=== PATIENT | male | born 1985 | race Caucasian/White ===

== ENCOUNTER 2021-07-21 18:31 | Inpatient (IN) | payer MEDICAID, SELFPAY ==
[2021-07-21 18:36] VITALS: BP 147/98; PULSE 74; RESP 18; TEMP 35.7; O2SAT 99; BMI 20.7
--- NOTE | 2021-07-21 18:38 | CTR_ITS ---
PROCEDURE INFORMATION: Exam: CT Abdomen And Pelvis With Contrast Exam date and time: 07/21/2021 6:38 PM Age: 36 years old Clinical indication: Abdominal pain; Generalized; Patient HX: Abd pain; Limited HX due to PT condition; Additional info: Severe abdominal pain TECHNIQUE: Imaging protocol: Computed tomography of the abdomen and pelvis with contrast. Radiation optimization: All CT scans at this facility use at least one of these dose optimization techniques: automated exposure control; mA and/or kV adjustment per patient size (includes targeted exams where dose is matched to clinical indication); or iterative reconstruction. Contrast material: OMNIPAQUE 300; Contrast volume: 95 ml; Contrast route: INTRAVENOUS (IV); COMPARISON: No relevant prior studies available. RADIATION DOSE METRICS: Total DLP (mGy-cm): 773.54 FINDINGS: Liver: Unremarkable. No mass. Gallbladder and bile ducts: No calcified stones. No ductal dilation. Pancreas: Unremarkable. No ductal dilation. Spleen: Unremarkable. No splenomegaly. Adrenal glands: Unremarkable. No mass. Kidneys and ureters: Unremarkable. No hydronephrosis. No solid mass. Stomach and bowel: Stomach is distended with fluid. Multiple dilated small bowel loops with air-fluid levels. The distal small bowel has an empty, decompressed appearance. Findings are consistent with small bowel obstruction. The point of obstruction is located in the right lower abdomen, series 2, images 47 through 52. No ischemic change or perforation of the bowel noted. Appendix: No evidence of appendicitis. Intraperitoneal space: No free air. No significant fluid collection. Vasculature: No abdominal aortic aneurysm. Lymph nodes: No pathologically enlarged lymph nodes. Urinary bladder: Unremarkable as visualized. Reproductive: Unremarkable as visualized. Bones/joints: Unremarkable. No acute osseous abnormality. Soft tissues: Unremarkable. CT/CT abdomen pelvis w con* [id number] IMPRESSION: 1. Multiple dilated small bowel loops with air-fluid levels. The distal small bowel has an empty, decompressed appearance. Findings are consistent with small bowel obstruction. No ischemic change or perforation noted. 2. No acute abnormality demonstrated of the solid organs.
--- NOTE | 2021-07-21 18:39 | ED_ITS ---
Documented by User: JANE Maurer 07/21/21 21:09 HPI - Abdominal Pain General: Chief Complaint: Abdominal Pain Stated Complaint: ABDOMINAL PAIN Time Seen by Provider: 07/21/21 18:33 Source: patient and EMS Mode of arrival: EMS Limitations: no limitations History of Present Illness: Patient is a 36-year-old male who presents to ED today via EMS for complaints of severe abdominal pains that began approximately 6 to 7 hours ago. Patient states he has felt incredibly nauseous but has not had any episodes of emesis. He states he has had mild amounts of diarrhea over the past 48 hours. No fevers. PMH is significant only for type 1 diabetes. Patient states he has been taking his insulin as prescribed. 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 MD elicited complaint: abdominal pain Onset (ago): hour(s) Pain Consistency: constant Location: Diffuse Severity: severe Pain scale (0-10): 10 Quality: sharp Radiation: none Migration to: no migration Exacerbating factors: nothing Relieving factors: nothing Associated Symptoms: Reports diarrhea and nausea; Denies chills, dysuria, fever(s), hematochezia, hematuria, hematemesis, melena, syncope and vomiting Review of Systems Const: Denies: fever(s), chills, body aches, fatigue or malaise Eyes: Denies: change in vision or blurry vision Card: Denies: chest pain, palpitations, lightheadedness, syncope or pre- syncope Resp: Denies: dyspnea GI: Reports: abdominal pain, nausea and diarrhea; Denies: vomiting, hematemesis, pain on defecation, hematochezia or melena : Denies: flank pain, dysuria, hematuria, genital pain, testicular pain, testicular mass or scrotal swelling Musc: Denies: neck pain, back pain, extremity pain or joint pain Skin/Breast: Denies: rash Neuro: Denies: headache(s), numbness in extremities, weakness in extremities, sensory changes or dizziness PFS ED PFSH: Medical History History of gastroschisis Smoking addiction Uncontrolled type I diabetes mellitus Surgical History H/O abdominal surgery 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 Family History Other No significant family history Social History Smoking and tobacco status: current some day smoker cigarettes Packs smoked per day: 1 Alcohol intake: never Lives independently: Yes Household members: significant other Marital status: Single Marital status details: Engaged Physical Exam Const: COMMON NORMALS: patient oriented x3, no limitations and alert GENERAL APPEARANCE: cooperative, in distress (seconary to pain) and anxious ORIENTATION/CONSCIOUSNESS: Yes awake, Yes oriented to person, Yes oriented to place and Yes oriented to time HENMT: COMMON NORMALS: normocephalic and atraumatic HEAD & SCALP: normocephalic and atraumatic Chest: COMMONS NORMALS: normal inspection of the chest and normal palpation of entire chest wall Resp: COMMON NORMALS: normal respiratory effort and clear to auscultation bilaterally AUSCULTATION: clear to auscultation bilaterally Cardio: COMMON NORMALS: regular rate and regular rhythm RATE: regular rate RHYTHM: regular rhythm GI: COMMON NORMALS: No hepatosplenomegaly present and no masses INSPECTION: Yes normal to inspection, No abdominal wall ecchymosis and No Abdominal wall edema AUSCULTATION: Yes Hypoactive bowel sounds present PALPATION: Yes Tenderness to palpation present (GI) (diffuse-rigid abdomen), Yes Guarding due to palpation present (GI), Yes Rigid due to palpation and Yes No hepatosplenomegaly present : COMMON NORMALS: Yes no CVA tenderness BLADDER/KIDNEY EXAM: Yes no CVA tenderness Back/Pelvis: COMMON NORMALS: no CVA tenderness Extremity: COMMON NORMALS: normal to inspection GENERAL: Yes normal exam except as noted Neuro: KYM COMA SCALE: document GCS findings [place] coma scale eye opening: Spontaneous Kym coma scale verbal response: Orientated [place] coma scale motor response: Obey commands Kym coma scale total score: 15 COMMON NORMALS: patient oriented x3, moves all extremities, no focal motor deficits and no sensory deficits noted SENSORIUM/ORIENTATION: Yes alert, Yes oriented to person, Yes oriented to place and Yes oriented to time Skin: COMMON NORMALS: no rashes or lesions noted GENERAL SKIN EXAM: no rashes or lesions noted Course Consultations: Consultation #1: Dr. Martinez-recommends NG tube, repeat labs in the morning, IV fluid hydration with NS, and he will graciously consult on patient Consultation #2: Dr. Rinaldi-accepts admission Vital Signs: Vital signs: Vital Signs Temperature 98.6 F 07/23/21 07:35 Pulse Rate 72 07/23/21 07:35 Respiratory Rate 16 07/23/21 07:35 Blood Pressure 109/68 07/23/21 07:35 Pulse Oximetry 96 07/23/21 07:35 MDM - Abdominal Pain Medical Decision Making Patient is a 36-year-old male here with small bowel obstruction without perforation His vital signs are normal. His white count is 14.9. He is a normal lactate. Patient is an uncontrolled type I diabetic. Patient will be admitted to hospitalist Dr. Rinaldi with Dr. Martinez to consult. Lab Data : 07/23/21 04:32 07/23/21 04:32 Labs/Radiology: Radiology Impressions Abdomen/Pelvis CT 07/21/21 18:38 IMPRESSION: 1. Multiple dilated small bowel loops with air-fluid levels. The distal small bowel has an empty, decompressed appearance. Findings are consistent with small bowel obstruction. No ischemic change or perforation noted. 2. No acute abnormality demonstrated of the solid organs. Chest X-Ray 07/21/21 21:04 IMPRESSION: 1. There is an enteric tube present with distal tip in the stomach, just beyond the gastroesophageal junction. 2. No pulmonary infiltrates demonstrated. Laboratory Results WBC 14.9 10^3/uL (4.0-10.0) H 07/21/21 17:40 RBC 5.62 10^6/uL (4.1-5.3) H 07/21/21 17:40 Hgb 16.6 g/dL (11.7-16.6) 07/21/21 17:40 Hct 49.9 % (42.0-52.0) 07/21/21 17:40 MCV 88.8 fl (80-94) 07/21/21 17:40 MCH 29.5 pg (28.0-34.0) 07/21/21 17:40 MCHC 33.3 g/dL (30.0-36.0) 07/21/21 17:40 RDW 12.6 % (12.1-15.1) 07/21/21 17:40 Plt Count 574 10^3/cmm (130-400) H 07/21/21 17:40 MPV 9.0 fL (7.4-10.4) 07/21/21 17:40 Neut % (Auto) 70.9 % 07/21/21 17:40 Lymph % (Auto) 20.1 % 07/21/21 17:40 [place] % (Auto) 5.2 % 07/21/21 17:40 Eos % (Auto) 2.7 % 07/21/21 17:40 Baso % (Auto) 0.7 % 07/21/21 17:40 Neut # (Auto) 10.55 10^3/uL (1.8-7.7) H 07/21/21 17:40 Lymph # (Auto) 3.0 10^3/uL (0.8-4.8) 07/21/21 17:40 [place] # (Auto) 0.8 10^3/uL (0.2-0.9) 07/21/21 17:40 Eos # (Auto) 0.4 10^3/uL (0.0-0.8) 07/21/21 17:40 Baso # (Auto) 0.1 10^3/uL (0.0-0.1) 07/21/21 17:40 Nucleated RBC % (auto) 0 % 07/21/21 17:40 Nucleated RBCs # 0.0 /100WBC 07/21/21 17:40 Sodium 138 mmol/L (136-145) 07/21/21 17:40 Potassium 3.8 mmol/L (3.5-5.1) 07/21/21 17:40 Chloride 90 mmol/L (98-107) L 07/21/21 17:40 Carbon Dioxide 27 mmol/L (22-29) 07/21/21 17:40 Anion Gap 24.8 (5-19) H 07/21/21 17:40 BUN 21 mg/dL (6-20) H 07/21/21 17:40 Creatinine 1.3 mg/dL (0.7-1.2) H 07/21/21 17:40 GFR Calculation 62.8 mL/min (90-130) L 07/21/21 17:40 Glucose 213 mg/dL (65-115) H 07/21/21 17:40 Estimat Average Glucose 192 07/21/21 17:40 Hemoglobin A1c 8.3 % (4.0-6.0) H 07/21/21 17:40 Calculated Osmolality 295 mOsm/kg (285-295) 07/21/21 17:40 Lactic Acid 1.7 mmol/L (0.5-2.2) 07/21/21 19:10 Calcium 12.8 mg/dL (8.5-10.5) H 07/21/21 17:40 Total Bilirubin 0.4 mg/dL (0.15-1.2) 07/21/21 17:40 AST 18 U/L (0-40) 07/21/21 17:40 ALT 21 U/L (0-41) 07/21/21 17:40 Alkaline Phosphatase 157 IU/L (40-130) H 07/21/21 17:40 Total Protein 10.2 g/dL (6.6-8.7) H 07/21/21 17:40 Albumin 5.8 g/dL (3.5-5.2) H 07/21/21 17:40 Globulin 4.4 g/dL (1.3-4.6) 07/21/21 17:40 Lipase 13 U/L (13-60) 07/21/21 17:40 Serum Ketones Negative (Negative) 07/21/21 19:10 Discharge Plan Discharge Patient Disposition: Admitted As Inpatient Admit Provider: Ricardo Rinaldi Clinical Impression: SBO (small bowel obstruction), Uncontrolled type I diabetes mellitus Condition: Stable Coding Level of Care Code ED Assistant Program Director for [facility] Fwd Exam Comprehensive Documented by User: Chago Clarke MD 07/23/21 09:10 HPI - Abdominal Pain General: Chief Complaint: Abdominal Pain Stated Complaint: ABDOMINAL PAIN Time Seen by Provider: 07/21/21 18:33 PFSH ED PFSH: Medical History History of gastroschisis Smoking addiction Uncontrolled type I diabetes mellitus Surgical History H/O abdominal surgery 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 Family History Other No significant family history Social History Smoking and tobacco status: current some day smoker cigarettes Packs smoked per day: 1 Alcohol intake: never Lives independently: Yes Household members: significant other Marital status: Single Marital status details: Engaged Physical Exam Neuro: KYM COMA SCALE: document GCS findings [place] coma scale total score: 15 Course Vital Signs: Vital signs: Vital Signs Temperature 98.6 F 07/23/21 07:35 Pulse Rate 72 07/23/21 07:35 Respiratory Rate 16 07/23/21 07:35 Blood Pressure 109/68 07/23/21 07:35 Pulse Oximetry 96 07/23/21 07:35 MDM - Abdominal Pain Medical Decision Making Patient is a 36-year-old male here with small bowel obstruction without perf oration His vital signs are normal. His white count is 14.9. He is a normal lactate. Patient is an uncontrolled type I diabetic. Patient will be admitted to hospitalist Dr. Rinaldi with Dr. Martinez to consult. I discussed this case with JANE Maurer. I reviewed documentation, labs, imaging. Patient to be admitted for bowel obstruction. Chago Clarke MD Emergency Medicine Lab Data : 07/23/21 04:32 07/23/21 04:32 Labs/Radiology: Radiology Impressions Abdomen/Pelvis CT 07/21/21 18:38 IMPRESSION: 1. Multiple dilated small bowel loops with air-fluid levels. The distal small bowel has an empty, decompressed appearance. Findings are consistent with small bowel obstruction. No ischemic change or perforation noted. 2. No acute abnormality demonstrated of the solid organs. Chest X-Ray 07/21/21 21:04 IMPRESSION: 1. There is an enteric tube present with distal tip in the stomach, just beyond the gastroesophageal junction. 2. No pulmonary infiltrates demonstrated. Laboratory Results WBC 14.9 10^3/uL (4.0-10.0) H 07/21/21 17:40 RBC 5.62 10^6/uL (4.1-5.3) H 07/21/21 17:40 Hgb 16.6 g/dL (11.7-16.6) 07/21/21 17:40 Hct 49.9 % (42.0-52.0) 07/21/21 17:40 MCV 88.8 fl (80-94) 07/21/21 17:40 MCH 29.5 pg (28.0-34.0) 07/21/21 17:40 MCHC 33.3 g/dL (30.0-36.0) 07/21/21 17:40 RDW 12.6 % (12.1-15.1) 07/21/21 17:40 Plt Count 574 10^3/cmm (130-400) H 07/21/21 17:40 MPV 9.0 fL (7.4-10.4) 07/21/21 17:40 Neut % (Auto) 70.9 % 07/21/21 17:40 Lymph % (Auto) 20.1 % 07/21/21 17:40 [place] % (Auto) 5.2 % 07/21/21 17:40 Eos % (Auto) 2.7 % 07/21/21 17:40 Baso % (Auto) 0.7 % 07/21/21 17:40 Neut # (Auto) 10.55 10^3/uL (1.8-7.7) H 07/21/21 17:40 Lymph # (Auto) 3.0 10^3/uL (0.8-4.8) 07/21/21 17:40 [place] # (Auto) 0.8 10^3/uL (0.2-0.9) 07/21/21 17:40 Eos # (Auto) 0.4 10^3/uL (0.0-0.8) 07/21/21 17:40 Baso # (Auto) 0.1 10^3/uL (0.0-0.1) 07/21/21 17:40 Nucleated RBC % (auto) 0 % 03/16/22 17:40 Nucleated RBCs # 0.0 /100WBC 07/21/21 17:40 Sodium 138 mmol/L (136-145) 07/21/21 17:40 Potassium 3.8 mmol/L (3.5-5.1) 07/21/21 17:40 Chloride 90 mmol/L (98-107) L 07/21/21 17:40 Carbon Dioxide 27 mmol/L (22-29) 07/21/21 17:40 Anion Gap 24.8 (5-19) H 07/21/21 17:40 BUN 21 mg/dL (6-20) H 07/21/21 17:40 Creatinine 1.3 mg/dL (0.7-1.2) H 07/21/21 17:40 GFR Calculation 62.8 mL/min (90-130) L 07/21/21 17:40 Glucose 213 mg/dL (65-115) H 07/21/21 17:40 Estimat Average Glucose 192 07/21/21 17:40 Hemoglobin A1c 8.3 % (4.0-6.0) H 07/21/21 17:40 Calculated Osmolality 295 mOsm/kg (285-295) 07/21/21 17:40 Lactic Acid 1.7 mmol/L (0.5-2.2) 07/21/21 19:10 Calcium 12.8 mg/dL (8.5-10.5) H 07/21/21 17:40 Total Bilirubin 0.4 mg/dL (0.15-1.2) 07/21/21 17:40 AST 18 U/L (0-40) 07/21/21 17:40 ALT 21 U/L (0-41) 07/21/21 17:40 Alkaline Phosphatase 157 IU/L (40-130) H 07/21/21 17:40 Total Protein 10.2 g/dL (6.6-8.7) H 07/21/21 17:40 Albumin 5.8 g/dL (3.5-5.2) H 07/21/21 17:40 Globulin 4.4 g/dL (1.3-4.6) 07/21/21 17:40 Lipase 13 U/L (13-60) 07/21/21 17:40 Serum Ketones Negative (Negative) 07/21/21 19:10 Discharge Plan Discharge Patient Disposition: Admitted As Inpatient Admit Provider: Ricardo Rinaldi Clinical Impression: SBO (small bowel obstruction), Uncontrolled type I diabetes mellitus Condition: Stable Coding Level of Care Code ED Assistant Program Director for [facility] Fwd Exam Comprehensive
[2021-07-21] MEDS: sodium chloride 0.9% 1,000 ML 999 ML IV (19:00)
[2021-07-21 19:11] LABS: Basophils # 0.1 10^3/uL (0.0-0.1); Basophils % 0.7 %; Eosinophils # 0.4 10^3/uL (0.0-0.8); Eosinophils % 2.7 %; Hematocrit 49.9 % (42.0-52.0); Hemoglobin 16.6 g/dL (11.7-16.6); Lymphocytes % 20.1 %; Mean Corpuscular HGB Conc 33.3 g/dL (30.0-36.0); Mean Corpuscular Hemoglobin 29.5 pg (28.0-34.0); Mean Corpuscular Volume 88.8 fl (80-94); Monocytes # 0.8 10^3/uL (0.2-0.9); Monocytes % 5.2 %; Neutrophils # 10.55 10^3/uL (1.8-7.7); Neutrophils % 70.9 %; Nucleated Red Blood Cells % 0 %; Platelet Count 574 10^3/cmm (130-400); Red Blood Count 5.62 10^6/uL (4.1-5.3); Red Cell Distribution Width 12.6 % (12.1-15.1); White Blood Count 14.9 10^3/uL (4.0-10.0)
[2021-07-21] MEDS: iohexol 300 mg/mL 100 mL Btl IV (19:20)
[2021-07-21 19:40] LABS: Lactic Sepsis W/Reflex 1.7 mmol/L (0.5-2.2)
[2021-07-21 19:41] LABS: Alanine Aminotransferase 21 U/L (0-41); Albumin Level 5.8 g/dL (3.5-5.2); Alkaline Phosphatase 157 IU/L (40-130); Anion Gap 24.8 (5-19); Aspartate Amino Transferase 18 U/L (0-40); Blood Urea Nitrogen 21 mg/dL (6-20); Calcium 12.8 mg/dL (8.5-10.5); Carbon Dioxide 27 mmol/L (22-29); Chloride 90 mmol/L (98-107); Globulin 4.4 g/dL (1.3-4.6); Glomerular Filtration Rate 62.8 mL/min (90-130); Glucose 213 mg/dL (65-115); Lipase 13 U/L (13-60); Osmolality Calculated 295 mOsm/kg (285-295); Potassium 3.8 mmol/L (3.5-5.1); Sodium 138 mmol/L (136-145); Total Bilirubin 0.4 mg/dL (0.15-1.2); Total Protein 10.2 g/dL (6.6-8.7)
[2021-07-21 20:13] LABS: Ketone (Acetest) Serum Negative (Negative)
[2021-07-21] MEDS: insulin regular-human 100 units/1 mL 5 UNIT IVP (20:14)
[2021-07-21 20:45] VITALS: RESP 16
[2021-07-21] MEDS: morphine 4 mg/mL SDV 1 mL IVP (20:45)
--- NOTE | 2021-07-21 21:04 | XRR_ITS ---
PROCEDURE INFORMATION: Exam: XR Chest Exam date and time: 07/21/2021 9:04 PM Age: 36 years old Clinical indication: Device placement; Ng tube; Additional info: Ng placement TECHNIQUE: Imaging protocol: XR of the chest. Views: 1 view. COMPARISON: CT abdomen pelvis w con* [id number] 07/21/2021 7:21 PM FINDINGS: Tubes, catheters and devices: There is an enteric tube present with distal tip in the stomach, just beyond the gastroesophageal junction. Lungs: The lungs appear clear. No infiltrates. Pleural spaces: No pleural effusion. No pneumothorax. Heart/Mediastinum: No cardiomegaly. Bones/joints: Unremarkable. Gastrointestinal tract: Dilated small bowel in the upper abdomen, consistent with small bowel obstruction. XR/XR chest 1V portable [id number] IMPRESSION: 1. There is an enteric tube present with distal tip in the stomach, just beyond the gastroesophageal junction. 2. No pulmonary infiltrates demonstrated.
[2021-07-21 22:15] VITALS: RESP 15; O2SAT 98
[2021-07-21] MEDS: HYDROmorphone 1 mg/mL INJ 1 mL 0.5 MG IVP (22:15)
[2021-07-21 22:27] VITALS: BP 144/103; PULSE 94; RESP 18; TEMP 37.2; O2SAT 100
--- NOTE | 2021-07-21 22:47 | PM.HP ---
Providers/Chief Complaint Admitting Physician: Ricardo Rinaldi Primary Care Provider: MANISHA Park Chief Complaint: ABDOMINAL PAIN History of Present Illness 36-year-old, with history of gastroschisis and repair in infancy, with recurrent episodes of constipation, over the last several months with very poor oral intake, sometimes no bowel movement for about a week, recurrent nausea, recently his fianc?e is also describing episodes of orthostasis, getting lightheaded, nauseated while standing up. He does not usually follow with a doctor. He does have diabetes type 1 for which he takes only sliding scale regular insulin. She states that he buy it [id number] from [employer]. Today he has been expensing recurrent episodes of vomiting, with abdominal pain, tiny amounts of liquid stool. In ER he is noted afebrile, but initial troponin 96.2, subsequent 99 Fahrenheit. Leukocytosis 14.9., Cytosis 174. AMOS or CKD with creatinine 1.3, BUN 21. Bicarb 27, anion gap 24.8. Lactic acid 1.7. Glucose 213. Serum ketones negative. Lipase 13. T bili 0.4, AST 18, ALT 21, alk phos 157. Calcium 12.8. CT abdomen pelvis with noted multiple dilated small bowel loops with air-fluid levels. Distal small bowel is an empty decompressed appearance. Findings consistent with small bowel obstruction. No ischemic change or perforation noted on the contrast study. NG tube placed and surgery consultation was sought in ER. Review of Systems Const: Reports: change in appetite (Poor PO intake) and other (orthostasis); Denies: fever(s), chills, body aches or malaise Eyes: Denies: change in vision or eye redness ENMT: Denies: throat pain, oral sores or ear or mastoid pain Card: Denies: chest pain, edema, pre-syncope or dyspnea on exertion Resp: Denies: dyspnea, productive cough, change in phlegm color or hemoptysis GI: Reports: abdominal pain, nausea, vomiting and constipation; Denies: hematochezia or melena : Denies: flank pain, difficulty urinating, urinary frequency or hematuria Musc: Denies: back pain, joint swelling or joint redness Skin/Breast: Denies: rash, sores or new lesions Neuro: Denies: headache(s), numbness in extremities, weakness in extremities, dizziness, confusion or seizure-like activity Endo: Denies: polyuria or polydipsia Jerald/Lymph: Denies: easy bleeding or purpura All/Imm: Denies: urticaria, throat swelling or tongue swelling Medications/Allergies Home Medications Medication Instructions Recorded Confirmed Last Taken Type insulin regular human 100 unit/mL See Rx Instructions .ROUTE .COMPLEX 07/21/21 07/21/21 Unknown History injection solution (Novolin R Regular U-100 Insulin) Allergies Allergy/AdvReac Type Severity Reaction Status Date / Time cephalexin AdvReac Intermediate ADR-Vomitin Unverified 07/21/21 22:58 g PFSH Acute PFSH: Medical History (Updated 07/21/21 @ 23:35 by Ricardo Rinaldi MD) History of gastroschisis Smoking addiction Uncontrolled type I diabetes mellitus Surgical History (Updated 07/21/21 @ 22:56 by Ricardo Rinaldi MD) H/O abdominal surgery 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 Family History Other No significant family history Social History (Updated 07/21/21 @ 22:59 by Ricardo Rinaldi MD) Smoking and tobacco status: current some day smoker cigarettes Packs smoked per day: 1 Alcohol intake: never Substance/Drug Use: current Substance/Drug use type: Marijuana Lives independently: Yes Household members: significant other Marital status: Single Marital status details: Engaged Vitals/I&O/Wt Last Vital Signs Temp 99.0 F 07/21/21 22:27 Pulse 94 07/21/21 22:27 Resp 18 07/21/21 22:27 BP 144/103 07/21/21 22:27 Pulse Ox 100 07/21/21 22:27 Weight last 48 hrs Weight 63.503 kg Physical Exam Narrative: Fianc?e at bedside Const: GENERAL APPEARANCE: not comfortable (abdominal pain) HENMT: COMMON NORMALS: oropharynx normal Neck/C-Spine: COMMON NORMALS: no JVD Resp: COMMON NORMALS: normal respiratory effort and clear to auscultation bilaterally AUSCULTATION: clear to auscultation bilaterally Cardio: COMMON NORMALS: no JVD, regular rhythm, S1 normal heart sound present, S2 normal heart sound present and No murmurs present (Cardio) RHYTHM: regular rhythm HEART SOUNDS: S1 normal heart sound present and S2 normal heart sound present GI: COMMON NORMALS: Soft to palpation AUSCULTATION: Yes Hypoactive bowel sounds present PALPATION: Yes Soft to palpation and Yes Tenderness to palpation present (GI) Extremity: COMMON NORMALS: no joint enlargement and no pedal edema Neuro: COMMON NORMALS: patient oriented x3 and moves all extremities Skin: COMMON NORMALS: no rashes or lesions noted GENERAL SKIN EXAM: no rashes or lesions noted Data : 07/21/21 17:40 07/21/21 17:40 A&P Assessment and plan (1) SBO (small bowel obstruction): Bowel rest. NGT decompression. Pain medication. Surgical consultation. Also reassess hypercalcemia. At this time no sign of perforation. No sign of bowel ischemia on imaging, lactic acid 1.7. PPI. Given leukocytosis, sweats, low-grade temp 99.2 Fahrenheit, possible minimal diarrhea, with abdominal pain, will empirically cover with antibiotics for now discussed with him and his fianc?e regarding ciprofloxacin and Flagyl at this time. Requested stool studies with culture, ova and parasite, C. difficile. Status: Acute (2) Uncontrolled type I diabetes mellitus: Does not go to doctors. Uses sliding scale regular insulin every 6 hours. His fianc?e states that he does check blood sugars regularly. Serum ketones negative. Will check UA for urine ketones. Does have anion gap acidosis. Glucose checks. Check A1c. We will give Lantus and short acting sliding scale while in hospital. Status: Acute (3) Hypercalcemia: Calcium 12.8. Unclear if this is contributing to symptoms and recurrent constipation. Patient may have symptomatic hypercalcemia. Alternatively could be secondary to dehydration with poor oral intake recently. Recheck BMP after he has received fluid resuscitation in ER. Continue IV hydration NS 150 mL/h. Check ionized calcium. Depending on results on repeat labs and ionized calcium, may need additional assessment and treatment if indeed symptomatic hypercalcemia. Status: Acute (4) Smoking addiction: Discussed with him regarding smoking including nicotine replacement, he declines currently patches or lozenges, discussed with him to let us know in case he is feeling cravings. Please continue reinforce smoking cessation. Status: Acute (5) AMOS (acute kidney injury): AMOS versus CKD, unknown baseline renal function. Creatinine is 1.3. BUN 21. Dehydrated, with combined acid-base disorder with metabolic alkalosis, also gap acidosis. IV hydration as above after fluid challenge. Reassess renal function. No history of NSAID use. No obstructive uropathy on CT. Status: Acute Plan Noted anion gap metabolic acidosis, anion gap 24.8, bicarb 27, with concomitant dehydration. IV hydration as above. Check urine for ketones. Lactic acid is 1.7. Appears to have acute kidney injury, possibly contributing. Follow-up chemistry Attestations Medical Necessity Statement*: Admission of 40 minutes is anticipated for assessment management of small bowel obstruction, AMOS, hypercalcemia. Coding Level of Care Code Acute Land Surveyor Assistant for [facility] Fwd Exam Comprehensive Diagnoses SBO (small bowel obstruction) K56.609 Uncontrolled type I diabetes mellitus E10.65 Hypercalcemia E83.52 Smoking addiction F17.200 AMOS (acute kidney injury) N17.9
[2021-07-21 23:19] VITALS: BP 143/103; PULSE 79; RESP 14; TEMP 37.3; O2SAT 98
[2021-07-21 23:42] LABS: Glucose Point of Care 261 mg/dL (70-110)
[2021-07-21 23:46] LABS: Ionized Calcium 1.3 mmol/L (1.1-1.4)
[2021-07-22] VITALS (7 sets, daily range): BP systolic 113–142; BP diastolic 65–84; PULSE 76–92; RESP 16–18; TEMP 36.4–37.1; O2SAT 94–97; BMI 18.8
[2021-07-22] MEDS: metroNIDAZOLE IV 500 MG/100 ML PREMIX 100 MG IV ×3 (00:05→17:19)
[2021-07-22] MEDS: insulin glargine 100 units/1 mL 10 UNIT SUBCUT ×2 (00:13→21:25)
[2021-07-22 00:19] LABS: Estmated Average Glucose 192; Hemoglobin A1C 8.3 % (4.0-6.0)
[2021-07-22 00:24] LABS: Anion Gap 25.6 (5-19); Blood Urea Nitrogen 24 mg/dL (6-20); Calcium 11.6 mg/dL (8.5-10.5); Carbon Dioxide 23 mmol/L (22-29); Chloride 90 mmol/L (98-107); Glomerular Filtration Rate 43.2 mL/min (90-130); Glucose 299 mg/dL (65-115); Osmolality Calculated 293 mOsm/kg (285-295); Potassium 4.6 mmol/L (3.5-5.1); Sodium 134 mmol/L (136-145)
[2021-07-22] MEDS: HYDROmorphone 1 mg/mL INJ 1 mL IVP (00:26)
[2021-07-22] MEDS: pantoprazole 40 mg SDV IVP (00:26)
[2021-07-22] MEDS: ciprofloxacin 400 MG/200 ML PREMIX 200 MG IV ×2 (01:15→13:48)
[2021-07-22 02:45] LABS: Glucose Point of Care 315 mg/dL (70-110)
[2021-07-22] MEDS: insulin lispro 100 unit/1 mL SUBCUT ×4 (05:02→18:35)
[2021-07-22 05:03] LABS: Glucose Point of Care 384 mg/dL (70-110)
[2021-07-22 05:09] LABS: Basophils # 0.1 10^3/uL (0.0-0.1); Basophils % 0.7 %; Eosinophils # 0.1 10^3/uL (0.0-0.8); Eosinophils % 0.6 %; Hematocrit 52.5 % (42.0-52.0); Hemoglobin 17.1 g/dL (11.7-16.6); Lymphocytes # 0.5 10^3/uL (0.8-4.8); Lymphocytes % 4.2 %; Mean Corpuscular HGB Conc 32.6 g/dL (30.0-36.0); Mean Corpuscular Hemoglobin 29.1 pg (28.0-34.0); Mean Corpuscular Volume 89.4 fl (80-94); Mean Platelet Volume 8.5 fL (7.4-10.4); Monocytes # 1.2 10^3/uL (0.2-0.9); Monocytes % 10.3 %; Nucleated Red Blood Cells % 0 %; Platelet Count 585 10^3/cmm (130-400); Red Blood Count 5.87 10^6/uL (4.1-5.3); Red Cell Distribution Width 12.4 % (12.1-15.1)
[2021-07-22] MEDS: ondansetron 2 mg/ML SDV 2 mL 4 MG IVP (05:24)
--- NOTE | 2021-07-22 05:47 | P.CONIM_ITS ---
Providers/Reason For Consult Consulting Physician/Specialty*: Krishna Martinez MD Reason for Consult*: Bowel obstruction Requesting Physician: JANE Maurer Attending Physician: Ricardo Rinaldi Primary Care Provider: MANISHA Park History of Present Illness History of Present Illness Chief Complaint: Abdominal pain History of present illness: Mr.Dennis Ying Shah is a 36 year old male presents to the emergency department with worsening abdominal pain describes it as pinching nothing seems to make it better or worse. Patient had about 2500 total mL of NG aspirate since admission to the ER. He reports that he has been having bouts of abdominal pain in the past that did not require hospitalization but he was hospitalized before for diabetic ketoacidosis. Patient is well-known to be a type I diabetic but it d oes not seem that he is seeking sustainable medical management and he treats his own self per his description. 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 He denies vomiting and he passed gas yesterday morning and had a loose bowel movement about 2 days ago. Patient undergone further work-up in the ER that showed slight elevation of WBC count of 14.9, creatinine of 1.3 and lactic acid of 1.7. CT scan of the abdomen pelvis was done that showed; multiple dilated small bowel loops with air-fluid levels.? Distal small bowel is an empty decompressed appearance.? Findings consistent with small bowel obstruction.? No ischemic change or perforation noted on the contrast study.? General surgery was consulted for further evaluation potential managed Review of Systems General: Reports: 10 or more systems reviewed and unremarkable except in HPI and below Medications/Allergies Home Medications Medication Instructions Recorded Confirmed Last Taken Type insulin regular human 100 unit/mL See Rx Instructions .ROUTE .COMPLEX 07/21/21 07/21/21 Unknown History injection solution (Novolin R Regular U-100 Insulin) Allergies Allergy/AdvReac Type Severity Reaction Status Date / Time cephalexin AdvReac Intermediate ADR-Vomitin Verified 07/22/21 06:18 g Current Medications Generic Name Dose Route Start Last Admin Trade Name Freq PRN Reason Stop Dose Admin Heparin Sodium (Porcine) 5,000 unit 07/21/21 23:41 07/22/21 00:00 Heparin 5,000 Unit/Ml Inj 1 Ml SUBCUT 5,000 unit Q8H ARMEN Administration Hydromorphone HCl 1 mg 07/21/21 23:41 07/22/21 00:26 Hydromorphone 1 Mg/Ml Inj 1 Ml IVP 07/22/21 23:40 1 mg Q2H PRN Administration SEVERE PAIN Ciprofloxacin/Dextrose 400 mg in 200 mls @ 200 mls/hr 07/22/21 01:00 07/22/21 02:22 Cipro IV Infused Q12H ARMEN Infusion Protocol Metronidazole 500 mg in 100 mls @ 100 mls/hr 07/22/21 00:00 07/22/21 01:15 Flagyl Iv IV Infused Q8H ARMEN Infusion Protocol Sodium Chloride 1,000 mls @ 150 mls/hr 07/21/21 23:41 07/22/21 00:00 Sodium Chloride 0.9% IV 150 mls/hr .Q6H40M ARMEN Administration Insulin Glargine 10 unit 07/22/21 00:00 07/22/21 00:13 Insulin Glargine 100 Units/1 Ml SUBCUT 10 unit BEDTIME ARMEN Administration Insulin Human Lispro 0 unit 07/21/21 23:41 07/22/21 05:02 Insulin Lispro 100 Unit/1 Ml SUBCUT 12 unit Q6H ARMEN Administration Protocol Ondansetron HCl 4 mg 07/22/21 05:07 07/22/21 05:24 Ondansetron 2 Mg/Ml Sdv 2 Ml IVP 4 mg Q4H PRN Administration NAUSEA AND VOMITING Pantoprazole Sodium 40 mg 07/21/21 23:41 07/22/21 00:26 Pantoprazole 40 Mg Sdv IVP 40 mg Q24H ARMEN Administration PFSH Acute PFSH: Medical History History of gastroschisis Smoking addiction Uncontrolled type I diabetes mellitus Surgical History H/O abdominal surgery 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 Family History Other No significant family history Social History Smoking and tobacco status: current some day smoker cigarettes Packs smoked per day: 1 Alcohol intake: never Substance/Drug Use: current Substance/Drug use type: Marijuana Lives independently: Yes Household members: significant other Marital status: Single Marital status details: Engaged Vitals/I&O/Wt Last Vital Signs Temp 98.4 F 07/22/21 04:00 Pulse 88 07/22/21 04:00 Resp 18 07/22/21 04:00 BP 142/80 07/22/21 04:00 Pulse Ox 94 07/22/21 04:00 07/21/21 07/21/21 07/22/21 14:59 22:59 06:59 Intake Total 1300 / 1300 Output Total 1000 / 1000 Balance 300 / 300 Weight last 48 hrs Weight 138 lb 14.4 oz Weight 140 lb Physical Exam Const: COMMON NORMALS: no acute distress and patient oriented x3 GENERAL APPEARANCE: cooperative ORIENTATION/CONSCIOUSNESS: Yes awake, Yes oriented to person, Yes oriented to place and Yes oriented to time HENMT: COMMON NORMALS: normocephalic HEAD & SCALP: normocephalic NOSE: Other nasal findings present (NG in place with gastric aspirate) Eye: COMMON NORMALS: Equal, round and reactive pupils present and no scleral icterus PUPIL: Yes Equal, round and reactive pupils present Lymph: LYMPHATIC: no lymphadenopathy noted Chest: COMMONS NORMALS: normal inspection of the chest Resp: COMMON NORMALS: normal respiratory effort and clear to auscultation bilaterally AUSCULTATION: clear to auscultation bilaterally Cardio: COMMON NORMALS: S1 normal heart sound present and S2 normal heart sound present; negative for No murmurs present (Cardio) HEART SOUNDS: S1 normal heart sound present and S2 normal heart sound present GI: COMMON NORMALS: Soft to palpation; negative for No hepatosplenomegaly present INSPECTION: Yes normal to inspection PALPATION: Yes Soft to palpation, No Firmness to palpation present (GI), Yes Tenderness to palpation present (GI) (Particularly towards the right upper quadrant), No Guarding due to palpation present (GI), No Rigid due to pal pation and No No hepatosplenomegaly present Neuro: COMMON NORMALS: patient oriented x3 SENSORIUM/ORIENTATION: Yes orien roderick to person, Yes oriented to place and Yes oriented to time Psych: COMMON NORMALS: mental status grossly normal Skin: COMMON NORMALS: no rashes or lesions noted GENERAL SKIN EXAM: no rashes or lesions noted Data : 07/22/21 04:45 07/22/21 04:45 A&P Assessment and plan (1) SBO (small bowel obstruction): Assessment 36 years old gentleman presents with small bowel obstruction with history of typ e I diabetes seems to be poorly controlled Plan After thorough history physical examination and reviewing the chart and images with my personal interpretation, certainly there is distended and dilated bowel loops yet I do not see a distinct transition point, likely the 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 NG to low intermittent wall suction IV fluid resuscitation Repeated physical examination Encourage ambulation Pharmacologic DVT prophylaxis Management of diabetes per hospitalist service We will continue to follow on the patient clinical progress Strict I's and O's Recommend to rule out other potential underlying causes of chronic constipation as hypothyroidism and rule out hyperparathyroidism as well. Assurance and education All questions have been answered and all concerns have been addressed to patient's satisfaction. Status: Acute Consult Attestations Medical Necessity Statement: Per admitting service Coding Level of Care Code Acute Multigraph Operator for [facility] Diagnoses SBO (small bowel obstruction) K56.609
[2021-07-22 05:57] LABS: Alanine Aminotransferase 21 U/L (0-41); Albumin Level 5.6 g/dL (3.5-5.2); Alkaline Phosphatase 154 IU/L (40-130); Aspartate Amino Transferase 15 U/L (0-40); Blood Urea Nitrogen 28 mg/dL (6-20); Calcium 10.2 mg/dL (8.5-10.5); Carbon Dioxide 25 mmol/L (22-29); Chloride 89 mmol/L (98-107); Globulin 3.5 g/dL (1.3-4.6); Glomerular Filtration Rate 32.5 mL/min (90-130); Glucose 421 mg/dL (65-115); Osmolality Calculated 291 mOsm/kg (285-295); Sodium 129 mmol/L (136-145); Total Bilirubin 0.5 mg/dL (0.15-1.2); Total Protein 9.1 g/dL (6.6-8.7)
--- NOTE | 2021-07-22 06:25 | ECG_ITS ---
[facility] Test Date: 2021-07-22 Pat Name: Mal Shah Department: Room: 253 Gender: Male Cabinet Maker: : [id number] Requested By: Ricardo Rinaldi Order Number: [id number] Aleah MD: Baljinder Rader M.D. Measurements Intervals [place] Rate: 74 P: 84 PA: 132 QRS: 84 QRSD: 84 T: 73 QT: 379 QTc: 422 Interpretive Statements SINUS RHYTHM POSSIBLE RIGHT ATRIAL ENLARGEMENT [0.25mV P WAVE] LEFT ATRIAL ENLARGEMENT [-0.15mV P WAVE IN V1/V2] Compared to ECG 06/15/2015 19:55:36 No significant changes Electronically Signed On 07-22-2021 21:44:53 CDT by Baljinder Rader M.D. [email or web address]
[2021-07-22 07:00] LABS: Potassium 6.1 mmol/L (3.5-5.1)
[2021-07-22] MEDS: sodium chloride 0.9% 1,000 ML 150 ML IV ×4 (07:03→21:24)
[2021-07-22] MEDS: heparin 5,000 unit/mL INJ 1 mL 5000 UNIT SUBCUT ×3 (09:01→17:19)
--- NOTE | 2021-07-22 10:15 | PC.CHAP ---
Pastoral Care Encounter/Spiritual Assessment Type of Contact [] Declined automotive lube technician visit [] Patient/Family/Request visit [] Outpatient visit [] Follow-up visit [] Physician referral [] Code/Alert [x] Routine visit [] Staff referral [] Actively dying [] Patient sleeping [] Family support [] [] Out of room [] Palliative care [] [x] Receiving care in room [] Pre-surgical visit [] Trauma [] Long length of stay [] ICU visit [] Other: with staff care Relational/Emotional Strength [] Patient feels connected with others/family/visitors/staff [] Distress [] Loneliness/isolation [] Abandonment Spirituality of Patient [] Person of Farrah [] Attends Presybeterian of their Farrah [] Believes in Prayer [] Reads Bible or Hindu materials [] There are Spiritual issues to be addressed [employer] Demonstrator Interventions [] Prayer [] Active listening [] Non-anxious presence [] Spiritual/emotional support [] Crisis/trauma care [] Spiritual counseling [] Bereavement support [] Provided bereavement packet [] Provided Bible/devotional materials [] Provided toy/stuffed animal, coloring book to patient or family member [] Provided Communion [] Anointing/[place] [] Salvation [] Completed spiritual assessment [] Other: Impact on Illness or Injury [] Angry [] Fearful [] Anxious [] Often cries [] Exhaustion [] Unable to work [] Unable to attend christianity [] Unable to walk/stand [] Unable to read [] Unable to drive [] Unable to eat/drink [] Unable to sleep [] Unable to be with family [] Patient intubated [] Other: Summary with staff care Time spent with patient 5 mins
[2021-07-22] MEDS: dextrose 50% syringe 50 mL 25 ML IVP (10:43)
[2021-07-22 11:23] LABS: Glucose Point of Care 153 mg/dL (70-110)
--- NOTE | 2021-07-22 14:16 | PC.NURSE ---
wound assessment on wrong patient. This patient has no visible drains or wounds
[2021-07-22 15:01] LABS: Anion Gap 14.8 (5-19); Blood Urea Nitrogen 26 mg/dL (6-20); Calcium 8.7 mg/dL (8.5-10.5); Carbon Dioxide 25 mmol/L (22-29); Chloride 100 mmol/L (98-107); Glomerular Filtration Rate 53.3 mL/min (90-130); Glucose 123 mg/dL (65-115); Osmolality Calculated 288 mOsm/kg (285-295); Potassium 3.8 mmol/L (3.5-5.1); Sodium 136 mmol/L (136-145)
--- NOTE | 2021-07-22 17:13 | P.PN_ITS ---
Subjective Subjective: Patient was seen and examined this morning, currently he is passing, flatus, also had 1 liquid bowel movement, denies any abdominal pain nausea vomiting. His other vitals and labs have been reviewed. Medications: Medication Review Details: Generic Name Dose Route Start Last Admin Trade Name Freq PRN Reason Stop Dose Admin Heparin Sodium (Po rcine) 5,000 unit 07/21/21 23:41 07/22/21 09:01 Heparin 5,000 Un it/Ml Inj 1 Ml SUBCUT 5,000 unit Q8H ARMEN Administration Hydromorphone HCl 1 mg 07/21/21 23:41 07/22/21 00:26 Hydromorphone 1 Mg/Ml Inj 1 Ml IVP 07/22/21 23:40 1 mg Q2H PRN Administration SEVERE PAIN Ciprofloxacin/Dext dayana 400 mg in 200 mls @ 200 mls/hr 07/22/21 01:00 07/22/21 13:48 Cipro IV 200 mls/hr Q12H ARMEN Administration Protocol Metronidazole 500 mg in 100 mls @ 100 mls/hr 07/22/21 00:00 07/22/21 09:02 Flagyl Iv IV 100 mls/hr Q8H ARMEN Administration Protocol Sodium Chloride 1,000 mls @ 150 m ls/hr 07/21/21 23:41 07/22/21 13:57 Sodium Chloride 0.9% IV 150 mls/hr .Q6H40M ARMEN Administration Insulin Glargine 10 unit 07/22/21 00:00 07/22/21 00:13 Insulin Glargine 100 Units/1 Ml SUBCUT 10 unit BEDTIME ARMEN Administration Insulin Human Lisp ro 0 unit 07/21/21 23:41 07/22/21 12:13 Insulin Lispro 1 00 Unit/1 Ml SUBCUT 2 unit Q6H ARMEN Administration Protocol Ondansetron HCl 4 mg 07/22/21 05:07 07/22/21 05:24 Ondansetron 2 Mg /Ml Sdv 2 Ml IVP 4 mg Q4H PRN Administration NAUSEA AND VOMITI NG Pantoprazole Sodiu m 40 mg 07/21/21 23:41 07/22/21 00:26 Pantoprazole 40 Mg Sdv IVP 40 mg Q24H ARMEN Administration Vitals/I&O/Wt Last Vital Signs Temp 98.7 F 07/22/21 16:00 Pulse 76 07/22/21 16:00 Resp 16 07/22/21 16:00 BP 117/68 07/22/21 16:00 Pulse Ox 95 07/22/21 16:00 07/22/21 07/22/21 07/22/21 06:59 14:59 22:59 Intake Total 2300 / 2300 1000 / 1000 Output Total 1000 / 1000 Balance 1300 / 1300 1000 / 1000 Weight last 48 hrs Weight 57.833 kg Weight 63.004 kg Weight 63.503 kg Physical Exam Const: COMMON NORMALS: patient oriented x3 HENMT: COMMON NORMALS: normocephalic, atraumatic, hearing grossly normal bilaterally and external ears normal HEAD & SCALP: normocephalic and atraumatic EXTERNAL EAR: Yes external ears normal Eye: COMMON NORMALS: no scleral icterus GENERAL EYE: appearance normal, both eyes and all related structures Chest: COMMONS NORMALS: normal inspection of the chest and normal palpation of entire chest wall CHEST: Yes Symmetrical chest wall rise Resp: COMMON NORMALS: normal respiratory effort, No retractions, No use of accessory muscles and clear to auscultation bilaterally EFFORT & INSPECTION: Yes symmetric chest movement AUSCULTATION: clear to auscultation bilaterally Cardio: COMMON NORMALS: regular rate, regular rhythm, S1 normal heart sound present, S2 normal heart sound present, No gallops present (Cardio), No murmurs present (Cardio), No rub (Cardio) and Peripheral pulses 2+ throughout RATE: regular rate RHYTHM: regular rhythm HEART SOUNDS: S1 normal heart sound present and S2 normal heart sound present PERIPHERAL PULSES: Peripheral pulses 2+ throughout GI: COMMON NORMALS: Normal to inspection, nondistended, normoactive bowel soun ds present, Soft to palpation, non-tender, No hepatosplenomegaly present and no masses AUSCULTATION: Yes normoactive bowel sounds PALPATION: Yes Soft to palpation and Yes No hepatosplenomegaly present RECTAL EXAM: Yes deferred Extremity: COMMON NORMALS: no clubbing, cyanosis or edema and no pedal edema Neuro: COMMON NORMALS: patient oriented x3 Data : 07/22/21 04:45 07/22/21 14:18 A&P Assessment and plan (1) SBO (small bowel obstruction): Status: Acute (2) Uncontrolled type I diabetes mellitus: Status: Acute (3) Hypercalcemia: Status: Acute (4) Smoking addiction: Discussed with him regarding smoking including nicotine replacement, he declines currently patches or lozenges, discussed with him to let us know in case he is feeling cravings. Please continue reinforce smoking cessation. Status: Acute (5) AMOS (acute kidney injury): Status: Acute Plan 36-year-old male with past medical history of gastroschisis repair in infancy, type 1 diabetes on sliding scale insulin at home, history of chronic constipation, came in with chief complaint of intractable nausea vomiting and abdominal pain. Assessment: #Small bowel obstruction: CT abdomen pelvis with noted multiple dilated small bowel loops with air-fluid levels.? Distal small bowel is an empty decompressed appearance.? Findings consistent with small bowel obstruction.? No ischemic change or perforation noted on the contrast study.? Currently is n.p.o. NG tube to suction Pain control. Empirically on Metro and Cipro, as he had some leukocytosis on admission. Surgery on board #AMOS on CKD: Likely prerenal Baseline serum creatinine unknown Admission serum creatinine 1.3 CT abdomen and pelvis has failed to show any obstructive uropathy Continue IV hydration Continue to monitor intake output Avoid nephrotoxic Follow urine sodium and creatinine Continue to monitor BMP #History of diabetes: Continue Lantus 10 units subcu at night Continue sliding scale insulin Monitor fingerstick #CODE STATUS: Full code #DVT prophylaxis: On heparin Attestations Medical Necessity Statement*: Patient is to be in hospital for management of small bowel obstruction, hyperkalemia AMOS. Time Spent in Patient Care: Greater than 35 minutes Coding Level of Care Code Acute Etcher Electrolytic for g Fwd Exam Comprehensive Diagnoses SBO (small bowel obstruction) K56.609 Uncontrolled type I diabetes mellitus E10.65 Hypercalcemia E83.52 Smoking addiction F17.200 AMOS (acute kidney injury) N17.9
[2021-07-22 17:33] LABS: Glucose Point of Care 225 mg/dL (70-110)
[2021-07-22 23:48] LABS: Glucose Point of Care 130 mg/dL (70-110)
[2021-07-23] VITALS: BP 119/70; PULSE 76; RESP 18; TEMP 36.6; O2SAT 94
[2021-07-23] MEDS: metroNIDAZOLE IV 500 MG/100 ML PREMIX 100 MG IV ×2 (00:05→08:14)
[2021-07-23] MEDS: heparin 5,000 unit/mL INJ 1 mL 5000 UNIT SUBCUT ×2 (00:06→08:15)
[2021-07-23] MEDS: pantoprazole 40 mg SDV IVP (00:06)
[2021-07-23] MEDS: ciprofloxacin 400 MG/200 ML PREMIX 200 MG IV (01:05)
[2021-07-23 04:00] VITALS: BP 122/79; PULSE 83; RESP 18; TEMP 36.5; O2SAT 99
[2021-07-23] MEDS: sodium chloride 0.9% 1,000 ML 150 ML IV (05:05)
[2021-07-23 05:24] LABS: Basophils # 0.1 10^3/uL (0.0-0.1); Basophils % 0.9 %; Eosinophils # 0.4 10^3/uL (0.0-0.8); Eosinophils % 4.6 %; Hematocrit 38.4 % (42.0-52.0); Hemoglobin 12.1 g/dL (11.7-16.6); Lymphocytes # 2.5 10^3/uL (0.8-4.8); Lymphocytes % 32.3 %; Mean Corpuscular HGB Conc 31.5 g/dL (30.0-36.0); Mean Corpuscular Hemoglobin 29.5 pg (28.0-34.0); Mean Corpuscular Volume 93.7 fl (80-94); Mean Platelet Volume 8.6 fL (7.4-10.4); Monocytes # 0.7 10^3/uL (0.2-0.9); Monocytes % 8.7 %; Neutrophils # 4.16 10^3/uL (1.8-7.7); Neutrophils % 53.4 %; Nucleated Red Blood Cells % 0 %; Platelet Count 351 10^3/cmm (130-400); Red Cell Distribution Width 12.7 % (12.1-15.1); White Blood Count 7.8 10^3/uL (4.0-10.0)
[2021-07-23 05:37] VITALS: PULSE 67; BMI 18.8
[2021-07-23 05:47] LABS: Alanine Aminotransferase 12 U/L (0-41); Albumin Level 3.5 g/dL (3.5-5.2); Alkaline Phosphatase 87 IU/L (40-130); Anion Gap 15.4 (5-19); Aspartate Amino Transferase 16 U/L (0-40); Blood Urea Nitrogen 20 mg/dL (6-20); Calcium 8.3 mg/dL (8.5-10.5); Carbon Dioxide 22 mmol/L (22-29); Chloride 102 mmol/L (98-107); Globulin 2.3 g/dL (1.3-4.6); Glucose 253 mg/dL (65-115); Osmolality Calculated 291 mOsm/kg (285-295); Potassium 4.4 mmol/L (3.5-5.1); Sodium 135 mmol/L (136-145); Total Bilirubin 0.4 mg/dL (0.15-1.2); Total Protein 5.8 g/dL (6.6-8.7)
--- NOTE | 2021-07-23 06:12 | PM.PN ---
Subjective Subjective: Patient seems to be overall doing much better and passing gas and having bowel movements. NG was supposed to be clamped yesterday afternoon for unclear reason that did not take place and patient does have minimal output per NG. Medications: Reviewed: Yes Vitals/I&O/Wt Last Vital Signs Temp 97.7 F 07/23/21 04:00 Pulse 67 07/23/21 05:37 Resp 18 07/23/21 04:00 BP 122/79 07/23/21 04:00 Pulse Ox 99 07/23/21 04:00 07/22/21 07/22/21 07/23/21 14:59 22:59 06:59 Intake Total 1300 / 1300 1100 / 2400 1300 / 3700 Output Total 300 / 300 Balance 1300 / 1300 800 / 2100 1300 / 3400 Weight last 48 hrs Weight 127 lb 4 oz Weight 127 lb 8 oz Weight 138 lb 14.4 oz Weight 140 lb Physical Exam Narrative: Patient is conscious alert oriented X3 No apparent distress BMI 19 Head and neck examination PERRLA no masses no cervical lymphadenopathy no jaundice NG in place Abdomen nontender nondistended soft no organomegaly guarding or rigidity/no signs of peritonitis Data : 07/23/21 04:32 07/23/21 04:32 A&P Assessment and plan (1) SBO (small bowel obstruction): Condition resolved DC NG tube Start the patient on clear liquid diet nonconcentrated sweet and advance as tolerated after From surgical standpoint of view of patient continues to do well can be discharged home Diabetes education and management Assurance and education All questions have been answered and all concerns have been addressed to patient's satisfaction. Status: Suspected Attestations Medical Necessity Statement*: Per admitting service Coding Level of Care Code Acute Entry Level Java Developer for [facility] Fwd Diagnoses SBO (small bowel obstruction) K56.609
[2021-07-23 07:35] VITALS: BP 109/68; PULSE 72; RESP 16; TEMP 37; O2SAT 96
[2021-07-23 07:43] LABS: Glucose Point of Care 223 mg/dL (70-110)
[2021-07-23] MEDS: insulin lispro 100 unit/1 mL SUBCUT (08:15)
[2021-07-23 11:13] VITALS: BP 109/66; PULSE 78; RESP 16; TEMP 36.4; O2SAT 98
[2021-07-23 11:22] LABS: Glucose Point of Care 117 mg/dL (70-110)
--- NOTE | 2021-07-23 11:31 | PM.DCS ---
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 Distal small bowel is an empty decompressed appearance.? Findings consistent with small bowel obstruction.? No ischemic change or perforation noted on the contrast study.Patient was continued to be managed conservatively Was kept n.p.o. NG tube to suction, pain control , IV hydration, he was empirically kept on Metro and Cipro As he had some leukocytosis on admission, with concerns for possible intra-abdominal pathology. Patient was also managed for AMOS prerenal responded well to IV hydration, at the time of discharge serum creatinine was normal. Patient was managed for his diabetes he was kept on Lantus and sliding scale insulin. Patient was also managed for hyperkalemia, he was managed with dextrose and insulin, to which he responded well, serum potassium was normal on discharge, hypercalcemia responded well to IV hydration. He Responded well to the above medical management and is being discharged in stable condition, at the time of discharge.He was tolerating p.o. intake well, denied any nausea vomiting abdominal pain.He was passing stool and flatus.No antibiotic was continued on discharge. Patient has been advised to see Endocrine as an outpatient for proper management of diabetes. Patient has responded well to above medical management and is being discharged in stable condition to home. Physical Exam Const: COMMON NORMALS: patient oriented x3 HENMT: COMMON NORMALS: normocephalic, atraumatic, hearing grossly normal bilaterally and external ears normal HEAD & SCALP: normocephalic and atraumatic EXTERNAL EAR: Yes external ears normal Eye: COMMON NORMALS: no scleral icterus GENERAL EYE: appearance normal, both eyes and all related structures Chest: COMMONS NORMALS: normal inspection of the chest and normal palpation of entire chest wall CHEST: Yes Symmetrical chest wall rise Resp: COMMON NORMALS: normal respiratory effort, No retractions, No use of accessory muscles and clear to auscultation bilaterally EFFORT & INSPECTION: Yes symmetric chest movement AUSCULTATION: clear to auscultation bilaterally Cardio: COMMON NORMALS: regular rate, regular rhythm, S1 normal heart sound present, S2 normal heart sound present, No gallops present (Cardio), No murmurs present (Cardio), No rub (Cardio) and Peripheral pulses 2+ throughout RATE: regular rate RHYTHM: regular rhythm HEART SOUNDS: S1 normal heart sound present and S2 normal heart sound present PERIPHERAL PULSES: Peripheral pulses 2+ throughout GI: COMMON NORMALS: Normal to inspection, nondistended, normoactive bowel sounds present, Soft to palpation, non-tender, No hepatosplenomegaly present and no masses AUSCULTATION: Yes normoactive bowel sounds PALPATION: Yes Soft to palpation and Yes No hepatosplenomegaly present RECTAL EXAM: Yes deferred Extremity: COMMON NORMALS: no clubbing, cyanosis or edema and no pedal edema Neuro: COMMON NORMALS: patient oriented x3 Discharge Data Studies Completed and Pending Completed Studies During Hospitalization Category Date Time Status CT abdomen pelvis w con* [id number] Stat Cat Scan 07/21/21 18:38 Completed XR chest 1V portable [id number] Urgent Exams 07/21/21 21:04 Completed Pending at discharge Category Date Time Status C DIFF [Clostridioides Difficile PCR] Routine Lab 07/21/21 23:41 Uncollected Complete Blood Count w/Auto AM LABS Lab 07/24/21 04:00 Ordered Comprehensive Metabolic Panel AM LABS Lab 07/24/21 04:00 Ordered OVA and Parasites, Conc and PE Routine Lab 07/21/21 23:41 Uncollected Stool Culture, Bacterial [Enteric Bacterial Panel by Lab 07/21/21 23:41 Uncollected PCR] Routine UA w/Reflex to Microscope [Urinalysis] Routine Lab 07/21/21 22:49 Uncollected Urinalysis Stat Lab 07/21/21 18:33 Ordered Radiology Impressions Abdomen/Pelvis CT 07/21/21 18:38 IMPRESSION: 1. Multiple dilated small bowel loops with air-fluid levels. The distal small bowel has an empty, decompressed appearance. Findings are consistent with small bowel obstruction. No ischemic change or perforation noted. 2. No acute abnormality demonstrated of the solid organs. Chest X-Ray 07/21/21 21:04 IMPRESSION: 1. There is an enteric tube present with distal tip in the stomach, just beyond the gastroesophageal junction. 2. No pulmonary infiltrates demonstrated. Laboratory Results WBC 7.8 10^3/uL (4.0-10.0) 07/23/21 04:32 RBC 4.10 10^6/uL (4.1-5.3) 07/23/21 04:32 Hgb 12.1 g/dL (11.7-16.6) 07/23/21 04:32 Hct 38.4 % (42.0-52.0) L 07/23/21 04:32 MCV 93.7 fl (80-94) 07/23/21 04:32 MCH 29.5 pg (28.0-34.0) 07/23/21 04:32 MCHC 31.5 g/dL (30.0-36.0) 07/23/21 04:32 RDW 12.7 % (12.1-15.1) 07/23/21 04:32 Plt Count 351 10^3/cmm (130-400) D 07/23/21 04:32 MPV 8.6 fL (7.4-10.4) 07/23/21 04:32 Neut % (Auto) 53.4 % 07/23/21 04:32 Lymph % (Auto) 32.3 % 07/23/21 04:32 [place] % (Auto) 8.7 % 07/23/21 04:32 Eos % (Auto) 4.6 % 07/23/21 04:32 Baso % (Auto) 0.9 % 07/23/21 04:32 Neut # (Auto) 4.16 10^3/uL (1.8-7.7) 07/23/21 04:32 Lymph # (Auto) 2.5 10^3/uL (0.8-4.8) 07/23/21 04:32 [place] # (Auto) 0.7 10^3/uL (0.2-0.9) 07/23/21 04:32 Eos # (Auto) 0.4 10^3/uL (0.0-0.8) 07/23/21 04:32 Baso # (Auto) 0.1 10^3/uL (0.0-0.1) 07/23/21 04:32 Nucleated RBC % (auto) 0 % 07/23/21 04:32 Nucleated RBCs # 0.0 /100WBC 07/23/21 04:32 Sodium 135 mmol/L (136-145) L 07/23/21 04:32 Potassium 4.4 mmol/L (3.5-5.1) 07/23/21 04:32 Chloride 102 mmol/L (98-107) 07/23/21 04:32 Carbon Dioxide 22 mmol/L (22-29) 07/23/21 04:32 Anion Gap 15.4 (5-19) 07/23/21 04:32 BUN 20 mg/dL (6-20) 07/23/21 04:32 Creatinine 1.0 mg/dL (0.7-1.2) 07/23/21 04:32 GFR Calculation 85.0 mL/min (90-130) L 07/23/21 04:32 Glucose 253 mg/dL (65-115) H 07/23/21 04:32 POC Glucose 117 mg/dL (70-110) H 07/23/21 11:11 Estimat Average Glucose 192 07/21/21 17:40 Hemoglobin A1c 8.3 % (4.0-6.0) H 07/21/21 17:40 Calculated Osmolality 291 mOsm/kg (285-295) 07/23/21 04:32 Lactic Acid 1.7 mmol/L (0.5-2.2) 07/21/21 19:10 Calcium 8.3 mg/dL (8.5-10.5) L 07/23/21 04:32 Ionized Calcium [place]ne 1.3 mmol/L (1.1-1.4) 07/21/21 23:18 Total Bilirubin 0.4 mg/dL (0.15-1.2) 07/23/21 04:32 AST 16 U/L (0-40) 07/23/21 04:32 ALT 12 U/L (0-41) 07/23/21 04:32 Alkaline Phosphatase 87 IU/L (40-130) 07/23/21 04:32 Total Protein 5.8 g/dL (6.6-8.7) L D 07/23/21 04:32 Albumin 3.5 g/dL (3.5-5.2) 07/23/21 04:32 Globulin 2.3 g/dL (1.3-4.6) 07/23/21 04:32 Lipase 13 U/L (13-60) 07/21/21 17:40 Serum Ketones Negative (Negative) 07/21/21 19:10 Vitals Last Vital Signs Temp 97.6 F 07/23/21 11:13 Pulse 78 07/23/21 11:13 Resp 16 07/23/21 11:13 BP 109/66 07/23/21 11:13 Pulse Ox 98 07/23/21 11:13 Discharge Plan Discharge Patient Disposition: Home Condition: Stable Prescriptions: Continued Novolin R Regular U-100 Insuln 100 unit/mL Solution See Rx Instructions .ROUTE .COMPLEX 0RF Rx Instructions: SLIDING SCALE EVERY 6 HOURS (GIVE OR TAKE 10 UNITS) Discharge Orders: Discharge Order (Routine); Ordered 07/23/21 Ordered By: Garret Bhakta Referrals: Charles Love FNP [Nurse Practitioner] - 08/02/21 10:00 am Deanna Zarco MD [Physician] - 08/05/21 10:15 am Discharge Diet: Diabetic Discharge Activity: Resume usual activity Patient Instructions: Type 1 Diabetes, Acute Kidney Injury (DC), Hypercalcemia (DC), Opioid Safety Discharge Attestations Time Spent in Discharge Care*: greater than 30 min Status at Discharge: Cognitive status at discharge: cognitively intact, Behavioral status at discharge: cooperative, Functional status at discharge: independent ambulation, Overall status at discharge: patient is back to baseline Quality Metrics Clinical Quality Measures [ No reported AMI, CVA or VTE this stay] Coding Level of Care Code Acute Chg FW DC note Diagnoses SBO (small bowel obstruction) K56.609
[2021-07-23 13:17] VITALS: BP 109/66; PULSE 78; RESP 16; TEMP 36.4; O2SAT 98
== END 2021-07-23 13:31 | disposition home or self-care (01) | DRG 389 ==
LOC: ER 20:50 → MEDSURG 21:50
PROVIDERS: Admitting Provider Internal Medicine; Emergency Provider Physician Assistant; PCP Nurse Practitioner Family; Visit Provider Internal Medicine
DX: K56.609 Unspecified intestinal obstruction, unspecified as to partial versus complete obstruction (principal); N17.9 Acute kidney failure, unspecified; E83.52 Hypercalcemia; E87.5 Hyperkalemia; Z87.19 Personal history of other diseases of the digestive system; F17.210 Nicotine dependence, cigarettes, uncomplicated; E10.65 Type 1 diabetes mellitus with hyperglycemia; Z79.4 Long term (current) use of insulin
CPT/HCPCS: 36415; 36416; 71045; 74177; 80048; 80053; 82009; 82330; 82962; 83036; 83605; 83690; 84132; 85025; 93005; 96361; 96372; 96374; 96375; 99285; C9113; J0744; J1170; J1644; J1815 ×2; J2270; J2405; J7030; Q9967; S0030

== ENCOUNTER → 2024-10-14 11:04 | Outpatient (BNVA) | payer MEDICAID, SELFPAY | PROVIDERS: PCP Nurse Practitioner Family; Referring Provider Nurse Practitioner Family; Visit Provider Internal Medicine | DX: E10.65 Type 1 diabetes mellitus with hyperglycemia (principal); E78.2 Mixed hyperlipidemia | CPT/HCPCS: 99204 ==